=== PATIENT | male | born 1965 | race Caucasian/White ===

== ENCOUNTER → 2019-08-18 | Outpatient (CLI) | payer OTHER ==
--- NOTE | 2019-09-15 12:29 | MCT ---
[facility] [place] [address] METHACHOLINE CHALLENGE TEST Name: MARY SERRANO Room #: REG [facility] Haseeb#: [id number] Admission: 08/18/19 Attend Phys: Edward Jerome MD Discharge: Date of : 69 Report #: [id number] THIS REPORT FOR: //name// Height: in Exam Date: Weight: lbs BTPS: X >> PRE BRONCHODILATOR: PREDICTED BEST %PRED FORCED VITAL CAPACITY (FRC) L LPM % FORCED EXP VOL/SEC (FEV1) L FEV/FVC % MAX MID-EXP FLOW (FEF 25-75) L/SEC L/SEC % PEAK EXP FLOW RATE (FEF MAX) L/MIN L/MIN MED-VC RATIO (FEF 50/FEF 50) .09 Baseline: Phenol Saline Level 1: 0.025 mg/ml BEST %PRED %CHANGE BEST %PRED %CHANGE FVC 3.55 L 90 % % FVC 3.61 L 92 % 1 % FEV1 2.54 L 86 % % FEV1 2.24 L 76 % -12 % Level 2: 0.25 mg/ml Level 3: 2.5 mg/ml BEST %PRED %CHANGE BEST %PRED %CHANGE FVC 3.69 L 94 % 4 % FVC L % % FEV1 1.95 L 66 % -23 % FEV1 L % % . Level 4: 10 mg/ml Level 5: 25 mg/ml BEST %PRED %CHANGE BEST %PRED %CHANGE FVC L % % FVC L % % FEV1 L % % FEV1 L % % Post Bronchodilator: 1st Treatment Post Bronchodilator: 2nd Treatment BEST %PRED %CHANGE BEST %PRED %CHANGE FVC 3.80 L 97 % 7 % FVC L % % FEV1 2.07 L 70 % -19 % FEV1 L % % Post Bronchodilator: 3rd Treatment BEST %PRED %CHANGE FVC L % % FEV1 L % % >> INTERPRETATION: [facility] [address] [place] [address] METHACHOLINE CHALLENGE TEST Name: MAGGIE,MAURICIOGAL Room #: REG [facility]#: [id number] Admission: 08/18/19 Attend Phys: Edward Jerome MD Discharge: Date of : 69 Report #: [id number] CC: FAM unknown Edward Jerome DATE OF SERVICE: 08/18/2019 Methacholine challenge: The patient was given routine increasing doses of methacholine per guidelines. Baseline FEV1 is 2.54 liters with a reference of 2.96 liters. First treatment decreased roughly 12%. However, on the second dose, FEV1 declined to 1.95, which is a 23% change and reevaluation was terminated. IMPRESSION: This is a positive methacholine challenge test. Please correlate clinically. <ELECTRONICALLY SIGNED> By: Jabier Vazquez MD 09/15/19 1229 Jabier Vazquez MD /meme
== END ==
LOC: PUL 07:22
DX: J98.4 Other disorders of lung (principal); Z95.5 Presence of coronary angioplasty implant and graft

== ENCOUNTER 2019-12-16 11:45 | Emergency (ER) | payer OTHER ==
[~2019-12-16] VITALS: Ht 172.7 cm; Wt 63.5 kg
--- NOTE | ~2019-12-16 | EKG ---
[facility] [place] [address] ELECTROCARDIOGRAM REPORT Name: MARY SERRANO Room #: [facility] M.R.#: [id number] Admission: Attend Phys: Discharge: Date of : 69 Report #: [id number] THIS REPORT FOR: //name// [facility] ED Test Date: 2019-12-16 Test Time: 12:29:36 Pat Name: MARY JUAREZN Department: Room: Gender: M Lang Interpreter: AMAYA : 1965 Requested By: Marti Dalton Order Number: [id number] MD: Measurements Intervals [place] Rate: 63 P: 27 [place]: 253 QRS: -81 QRSD: 111 T: 80 QT: 413 QTc: 423 Interpretive Statements Sinus rhythm Prolonged [place] interval Anterolateral infarct, age indeterminate Baseline wander in lead(s) V1 No previous ECG available for comparison [email or web address] By: 1229 1229 Epiphany EpiphMD felipa /EPI
[2019-12-16] MEDS ORDERED: BREO ELLIPTA 21 EACH INH (12:55)
[2019-12-16] MEDS ORDERED: LISINOPRIL20 MG PO (12:55)
[2019-12-16] MEDS ORDERED: PROAIR HFA8.5 GM INH (12:55)
[2019-12-16] MEDS ORDERED: SPIRONOLACTONE25 MG PO (12:56)
[2019-12-16 13:06] LABS: ABSOLUTE NEUTROPHILS 3.8 thou/uL (1.4-8.2); BASOPHILS 0.5 % (0.0-2.0); EOSINOPHILS 0.3 % (0.0-3.0); HEMATOCRIT 50.2 % (42.0-52.0); HEMOGLOBIN 16.8 gm/dL (14.0-18.0); LYMPHOCYTES 23.7 % (24.0-44.0); MCH 31.9 pg (26.0-34.0); MCHC 33.4 g/dL (28.0-37.0); MCV 95.6 fL (80.0-100.0); MONOCYTES 7.3 % (1.0-8.0); PLATELET COUNT 171 thou/uL (150-400); POLYS 68.2 % (36.0-66.0); RBC 5.25 mil/uL (4.50-6.00); WBC 5.6 thou/uL (4.0-11.0)
[2019-12-16 13:10] LABS: ANION GAP 7 mmol/L (7-16); BUN 13 mg/dL (7-18); CALCIUM 9.5 mg/dL (8.5-10.1); CHLORIDE 103 mmol/L (98-107); CO2 28 mmol/L (21-32); GLUCOSE 89 mg/dL (74-106); POTASSIUM 4.4 mmol/L (3.5-5.1); SODIUM 138 mmol/L (136-145)
[2019-12-16 13:19] LABS: TROPONIN-I <0.06 ng/mL (<0.06)
[2019-12-16] MEDS ORDERED: PREDNISONE 20 M20 MG PO (13:33)
[2019-12-16 14:00] VITALS: BP 110/65
== END 2019-12-16 14:00 | disposition home or self-care (01) ==
LOC: ER 11:45
PROVIDERS: Nurse Practitioner Family
DX: J98.4 Other disorders of lung (principal); R09.1 Pleurisy

== ENCOUNTER → 2019-12-28 | Outpatient (CLI) | payer OTHER ==
[~2019-12-28] MED LIST: BREO ELLIPTA 21 EACH INH; LISINOPRIL20 MG PO; PREDNISONE 20 M20 MG PO; PROAIR HFA8.5 GM INH; SPIRONOLACTONE25 MG PO
== END ==
LOC: CAT 10:11
DX: J68.3 Other acute and subacute respiratory conditions due to chemicals, gases, fumes and vapors (principal); K80.20 Calculus of gallbladder without cholecystitis without obstruction; R59.0 Localized enlarged lymph nodes; M47.814 Spondylosis without myelopathy or radiculopathy, thoracic region

== ENCOUNTER → 2021-11-27 | Outpatient (CLI) | payer OTHER ==
--- NOTE | 2021-11-27 16:10 | EKG ---
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: : 1965 Requested By: Edward Jerome Order Number: [id number] MD: Demario Boles Measurements Intervals [place] Rate: 69 P: 37 [place]: 288 QRS: 266 QRSD: 110 T: 106 QT: 416 QTc: 439 Interpretive Statements Sinus rhythm Prolonged [place] interval Compared to ECG 12/16/2019 12:29:36 No significant change Electronically Signed On 11-27-2021 16:09:55 [employer] by Demario Boles [email or web address] <ELECTRONICALLY SIGNED> By: Demario Boles MD, [facility] 11/27/21 1609 1231 1231 Demario Boles MD, FACC /EPI
== END ==
LOC: LAB 10:05 → RAD 10:05
PROVIDERS: ATTEND Internal Medicine
DX: J92.9 Pleural plaque without asbestos (principal); J84.10 Pulmonary fibrosis, unspecified; J84.89 Other specified interstitial pulmonary diseases; R06.02 Shortness of breath; J68.3 Other acute and subacute respiratory conditions due to chemicals, gases, fumes and vapors; R07.81 Pleurodynia